=== PATIENT | female | born 1970 | race American Indian/Alaskan Native ===

== ENCOUNTER 2017-08-09 08:03 | Emergency (ER) | payer OTHER ==
[2017-08-09 08:06] VITALS: BMI 34.9
[2017-08-09] MEDS ORDERED: TDAP Vaccine 0.5 mL Syr IM ONE (08:24)
[2017-08-09 08:30] VITALS: TEMP 98; O2SAT 98
--- NOTE | 2017-08-09 08:37 | ED PDOC ---
Arrival/HPI - General Chief Complaint: Needle Stick Time Seen by Provider: 08/09/17 08:23 Historian: Patient - History of Present Illness Narrative History of Present Illness (Text): 08/09/17 08:31 A 47 year old female, whose denies any past medical history, presents to the emergency department complaining of a needle stick injury. 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 Patient reports cleaning the effected area immediately after. Patient denies any fever, chills, nausea, vomiting, abdominal pain, chest pain, shortness of breath or any other complaints. Time/Duration: Prior to Arrival Context: Work Past Medical History - Provider Review Nursing Documentation Reviewed: Yes - Cardiac Hx Cardiac Disorders: Yes Hx Hypertension: Yes - Pulmonary Hx Respiratory Disorders: No - Neurological Hx Neurological Disorder: No - HEENT Hx HEENT Disorder: No - Renal Hx Renal Disorder: No - Endocrine/Metabolic Hx Endocrine Disorders: Yes Hx Diabetes Mellitus Type 2: Yes - Hematological/Oncological Hx Blood Disorders: No - Integumentary Hx Dermatological Disorder: No - Musculoskeletal/Rheumatological Hx Musculoskeletal Disorders: No - Gastrointestinal Hx Gastrointestinal Disorders: No - Genitourinary/Gynecological Hx Genitourinary Disorders: No - Psychiatric Hx Psychophysiologic Disorder: No Hx Substance Use: No Family/Social History - Physician Review Nursing Documentation Reviewed: Yes Family/Social History: No Known Family HX Smoking Status: Never Smoked Hx Alcohol Use: No Hx Substance Use: No Allergies/Home Meds Allergies/Adverse Reactions: Allergies milk Allergy (Verified 08/09/17 08:07) RASH Home Medications: Home Meds Medication Instructions Recorded Confirmed Atorvastatin [Lipitor] 10 mg PO DIN 08/09/17 08/09/17 Liraglutide [Victoza] 1.8 mg SC DAILY 08/09/17 08/09/17 Losartan [Cozaar] 25 mg PO DAILY 08/09/17 08/09/17 Metformin HCl [Glucophage] 1,000 mg PO BID 08/09/17 08/09/17 Review of Systems - Physician Review All systems were reviewed & negative as marked: Yes - Review of Systems Constitutional: absent: Fevers, Night Sweats Respiratory: absent: SOB Cardiovascular: absent: Chest Pain Gastrointestinal: absent: Abdominal Pain, Nausea, Vomiting Skin: Other (needle stick injury to right thumb) Physical Exam Vital Signs Reviewed: Yes Vital Signs Temp Pulse Resp BP Pulse Ox 08/09/17 09:30 74 18 136/78 98 08/09/17 08:29 98.0 F 78 17 142/95 H 98 Temperature: Afebrile Blood Pressure: Hypertensive Pulse: Regular Respiratory Rate: Normal Appearance: Positive for: Well-Appearing, Non-Toxic, Comfortable Pain Distress: None Mental Status: Positive for: Alert and Oriented X 3 - Systems Exam Head: Present: Atraumatic, Normocephalic Pupils: Present: PERRL Extroacular Muscles: Present: EOMI Conjunctiva: Present: Normal Neck: Present: Normal Range of Motion Respiratory/Chest: Present: Clear to Auscultation, Good Air Exchange. No: Respiratory Distress, Accessory Muscle Use Skin: Present: Warm, Dry, Normal Color. No: Rashes Psychiatric: Present: Alert, Oriented x 3, Normal Insight, Normal Concentration Medical Decision Making ED Course and Treatment: 08/09/17 08:31 Impression: A 47 year old female with a needle stick injury to right thumb Plan: -- Labs -- Urinalysis -- Boostrix vaccine -- Reassess and disposition Progress Notes: Ms. Kapadia was treating an 80 year old male when she sustained a needle stick injury. Spoke with nurse mechanical supervisor/employee health, who report the 82 year old patient is negative for HIV. No further treatment needed. I have discussed the results and plan with the patient, who expresses understanding. - Lab Interpretations Lab Results: 08/09/17 09:00 08/09/17 09:00 Lab Results 08/09/17 09:00: Urine Color Yellow, Urine Appearance Clear, Urine pH 6.0, Ur Specific [place] 1.015, Urine Protein Negative, Urine Glucose (UA) Negative, Urine Ketones Negative, Urine Blood Negative, Urine Nitrate Negative, Urine Bilirubin Negative, Urine Urobilinogen 0.2, Ur Leukocyte Esterase Negative, Urine HCG, Qual Negative 08/09/17 09:00: HIV-1 Ab Rapid Screen Non reactive 08/09/17 09:00: Sodium 139, Potassium 3.4 L, Chloride 102, Carbon Dioxide 24, Anion Gap 16, BUN 9, Creatinine 0.8, Est GFR ( Amer) > 60, Est GFR (Non- Af Amer) > 60, Random Glucose 101, Calcium 9.6, Total Bilirubin 0.3, AST 24, ALT 27, Alkaline Phosphatase 61, Total Protein 8.2, Albumin 4.5, Globulin 3.7, Albumin/Globulin Ratio 1.2, Amylase 198 H 08/09/17 09:00: WBC 7.3, RBC 4.40, Hgb 12.1, Hct 36.2, MCV 82.3, MCH 27.5, MCHC 33.4, RDW 13.6, Plt Count 490 H, MPV 8.4, Gran % 61.5, Lymph % (Auto) 29.4, [place] % (Auto) 5.6, Eos % (Auto) 3.0, Baso % (Auto) 0.5, Gran # 4.51, Lymph # ( Auto) 2.2, [place] # (Auto) 0.4, Eos # (Auto) 0.2, Baso # (Auto) 0.04 I have reviewed the lab results: Yes - Medication Orders Current Medication Orders: Discontinued Medications Tetanus/Reduced Diphtheria/Acell Pertussis (Boostrix Vaccine Inj) 0.5 ml IM .ONCE ONE Stop: 08/09/17 08:25 Last Admin: 08/09/17 09:16 Dose: 0.5 ml Immunization Registry Document 08/09/17 09:16 GMD (Rec: 08/09/17 09:16 GMD [id number]) Immunization Registry Consent Date 08/09/17 - Scribe Statement The provider has reviewed the documentation as recorded by the Scribe Heather Soto Provider Scribe Attestation: All medical record entries made by the Scribe were at my direction and personally dictated by me. I have reviewed the chart and agree that the record accurately reflects my personal performance of the history, physical exam, medical decision making, and the department course for this patient. I have also personally directed, reviewed, and agree with the discharge instructions and disposition. Disposition/Present on Arrival - Present on Arrival Any Indicators Present on Arrival: No History of DVT/PE: No History of Uncontrolled Diabetes: No Urinary Catheter: No History of Decub. Ulcer: No History Surgical Site Infection Following: None - Disposition Have Diagnosis and Disposition been Completed?: No Diagnosis: Needlestick injury accident Disposition: HOME/ ROUTINE Disposition Time: 09:11 Patient Plan: Discharge Condition: GOOD Additional Instructions: [facility] Employee Regarding your Work Related Injury, you are instructed to do all of the following by next day: 1. Notify [facility] Employee Health Department of the sustained injury and arrange for any follow-up appointments if needed during the next business day. If the office is closed or no answer is received, please leave a detailed voice message. 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 Employee Health can be reached at [phone]. 2. If there is time lost, notify [facility] Human Resources Department of the work related injury the next business day at [phone]. Sorry this happened to you. The source patient was negative for HIV. Follow up with Employee Health. Return to us if any problems or issues/ Best- Dr. Rhys Sellers Forms: [employer] ([place])
[2017-08-09 09:17] LABS: BASO # 0.04 K/mm3 (0.0-2.0); BASO % 0.5 % (0.0-3.0); EOS # 0.2 (0.0-0.7); GRAN # 4.51 (1.4-6.5); GRAN % 61.5 % (50.0-68.0); HEMOGLOBIN 12.1 g/dL (12.0-16.0); LYMPH # 2.2 (1.2-3.4); LYMPH % 29.4 % (22.0-35.0); MEAN CELL VOLUME 82.3 fl (80.0-105.0); MEAN CORPUSCULAR HEMOGLOBIN 27.5 pg (25.0-35.0); MEAN CORPUSCULAR HGB CONC 33.4 g/dl (31.0-37.0); MEAN PLATELET VOLUME 8.4 fl (7.0-11.0); MONO # 0.4 (0.1-0.6); MONO % 5.6 % (1.0-6.0); RBC 4.4 10^6/uL (3.5-6.1); RED CELL DISTRIBUTION WIDTH 13.6 % (11.5-14.5); WHITE BLOOD COUNT 7.3 10^3/ul (4.5-11.0)
[2017-08-09 09:23] LABS: ALB/GLOB RATIO 1.2 (1.1-1.8); ALBUMIN 4.5 g/dL (3.0-4.8); ALT/SGPT 27 U/L (7-56); AMYLASE 198 U/L (35-125); AST/SGOT 24 U/L (14-36); BLOOD UREA NITROGEN 9 mg/dL (7-21); CALCIUM 9.6 mg/dL (8.4-10.5); GFR AFRICAN-AMERICAN > 60; GFR NON-AFRICAN AMERICAN > 60
[2017-08-09 09:30] VITALS: BP 136/78; PULSE 74; RESP 18
[2017-08-09 09:30] LABS: URINE BILIRUBIN NEGATIVE (NEGATIVE); URINE BLOOD NEGATIVE (NEGATIVE); URINE GLUCOSE (UA) NEGATIVE (NEGATIVE); URINE LEUKOCYTE ESTERASE NEGATIVE Leu/uL (NEGATIVE); URINE PROTEIN NEGATIVE mg/dL (<30 mg/dL); URINE UROBILINOGEN 0.2 E.U./dL (<1 E.U./dL)
[2017-08-09 09:32] LABS: URINE APPEARANCE CLEAR (CLEAR); URINE COLOR YELLOW (YELLOW)
[2017-08-09 09:33] LABS: HCG,QUALITATIVE URINE NEGATIVE (NEGATIVE)
[2017-08-09 17:09] LABS: HEPATITIS B SURFACE AG Negative (NEGATIVE)
[2017-08-09 17:14] LABS: HEPATITIS A IGM NEGATIVE (NEGATIVE); HEPATITIS B CORE AB NEGATIVE (NEGATIVE)
[2017-08-09 17:26] LABS: HEPATITIS C ANTIBODY NEGATIVE (NEGATIVE)
== END 2017-08-09 09:31 | disposition home or self-care (01) ==
LOC: ED 08:03 → MERGE 08:03 → ED 09:31
DX: S61.031A Puncture wound without foreign body of right thumb without damage to nail, initial encounter (principal); W46.0XXA Contact with hypodermic needle, initial encounter; Y93.F9 Activity, other caregiving; Y92.238 Other place in hospital as the place of occurrence of the external cause; Y99.0 Civilian activity done for income or pay; Z23 Encounter for immunization

== ENCOUNTER 2018-08-31 08:49 | Outpatient (CLI) | payer OTHER | END 2018-08-31 08:50 | disposition home or self-care (01) | LOC: LAB 08:49 ==